=== PATIENT | male | born 1990 ===

== ENCOUNTER 2019-11-22 18:34 | Emergency (ER) | payer OTHER ==
[~2019-11-22] VITALS: Ht 190.5 cm; Wt 115.7 kg
[~2019-11-22 18:34] MED LIST: CYCL10 PO; IBUP800 PO
[2019-11-22] MEDS ORDERED: Cephalexin500 MG PO (19:57)
[2019-11-22] MEDS ORDERED: Bactrim Ds Tab1 EACH PO (19:57)
== END 2019-11-22 20:10 | disposition home or self-care (01) ==
LOC: ER 18:34
DX: L03.113 Cellulitis of right upper limb (principal)
CPT/HCPCS: 99283; A9270-GY